=== PATIENT | female | born 1975 | race Caucasian/White ===

== ENCOUNTER 2018-08-08 14:16 | Inpatient (IN) | payer BC ==
[~2018-08-08] VITALS: Ht 167.6 cm; Wt 75.8 kg
[2018-08-08] MEDS ORDERED: ELIQUIS5 MG PO (14:35)
[2018-08-08] MEDS ORDERED: CELEXA40 MG PO (14:36)
[2018-08-08] MEDS ORDERED: LIPITOR40 MG PO (14:36)
[2018-08-08] MEDS ORDERED: GLUCOPHAGE500 MG PO (14:37)
[2018-08-08] MEDS ORDERED: ADDERALL 20 MG20 M1 PO (14:38)
[2018-08-08] MEDS ORDERED: KLONOPIN1 MG PO (14:39)
[2018-08-08 16:45] LABS: BASOPHILS 0.2 % (0-2); EOSINOPHILS 1.5 % (0-7); HEMATOCRIT 36.2 % (36.0-48.0); IMMATURE GRANULOCYTES 0.2 % (0-5); LYMPHOCYTES 29.3 % (15-50); MCH 26.9 pg (26.0-34.0); MCHC 33.1 g/dL (31.0-37.0); MCV 81.2 fL (80.0-100.0); MONOCYTES 5.9 % (2-11); NEUTROPHILS 62.9 % (40-80); PLATELET COUNT 307 10x3/uL (130-400); RBC 4.46 10x6/uL (4.00-5.40); RDW 13.7 % (11.5-14.5); WBC 9.1 10x3/uL (4.8-10.8)
[2018-08-08 17:01] LABS: ALBUMIN 3.4 g/dL (3.4-5.0); ALKALINE PHOSPHATASE 85 U/L (46-116); ALT (SGPT) 26 U/L (10-68); BILIRUBIN - TOTAL 0.21 mg/dL (0.2-1.3); CALC OSMOLALITY 280 mosm/kg (275-300); CHLORIDE - SERUM 105 mmol/L (98-107); CREATININE - SERUM 0.7 mg/dL (0.6-1.3); GLUCOSE 124 mg/dL (74-106); POTASSIUM - SERUM 3.8 mmol/L (3.5-5.1); PROTEIN - SERUM 6.8 g/dL (6.4-8.2); SODIUM 141 mmol/L (136-145); UREA NITROGEN 9 mg/dL (7-18); eGFR NON AFRICAN AMERICAN > 90 mL/min (90-120)
[2018-08-08 19:27] VITALS: BP 128/81; BMI 27.0
[2018-08-08 20:01] VITALS: BP 109/76
[2018-08-09 04:57] VITALS: BP 113/67
[2018-08-09 05:36] LABS: BASOPHILS 0.3 % (0-2); EOSINOPHILS 2.9 % (0-7); HEMOGLOBIN 10.8 g/dL (12-16); IMMATURE GRANULOCYTES 0.3 % (0-5); LYMPHOCYTES 32.9 % (15-50); MCH 26.3 pg (26.0-34.0); MCHC 31.8 g/dL (31.0-37.0); MCV 82.9 fL (80.0-100.0); MEAN PLATELET VOLUME 9.2 fL (7.4-10.4); MONOCYTES 8.5 % (2-11); NEUTROPHILS 55.1 % (40-80); PLATELET COUNT 293 10x3/uL (130-400); RDW 13.8 % (11.5-14.5); WBC 7.9 10x3/uL (4.8-10.8)
[2018-08-09 06:13] LABS: ALBUMIN 3.1 g/dL (3.4-5.0); ALKALINE PHOSPHATASE 78 U/L (46-116); ALT (SGPT) 25 U/L (10-68); BILIRUBIN - TOTAL 0.48 mg/dL (0.2-1.3); CALCIUM 8.3 mg/dL (8.5-10.1); CARBON DIOXIDE 29.7 mmol/L (21.0-32.0); CHLORIDE - SERUM 103 mmol/L (98-107); CREATININE - SERUM 0.7 mg/dL (0.6-1.3); GLUCOSE 117 mg/dL (74-106); MAGNESIUM - SERUM 2.1 mg/dL (1.8-2.4); PHOSPHOROUS 4.7 mg/dL (2.5-4.9); POTASSIUM - SERUM 3.7 mmol/L (3.5-5.1); PROTEIN - SERUM 6.4 g/dL (6.4-8.2); SODIUM 140 mmol/L (136-145); eGFR NON AFRICAN AMERICAN > 90 mL/min (90-120)
[2018-08-09 06:14] LABS: CALC OSMOLALITY 279 mosm/kg (275-300); UREA NITROGEN 13 mg/dL (7-18)
[2018-08-09 09:06] VITALS: BP 95/69
[2018-08-09 13:53] VITALS: BP 115/80
[2018-08-09 15:05] VITALS: Ht 167.6 cm; Wt 75.8 kg
[2018-08-09 16:24] VITALS: BP 105/58; BP 128/81
[2018-08-09 20:25] VITALS: BP 121/84
[2018-08-10 03:41] VITALS: BP 104/71
[2018-08-10 05:16] LABS: BASOPHILS 0.2 % (0-2); EOSINOPHILS 2.4 % (0-7); HEMATOCRIT 32.7 % (36.0-48.0); IMMATURE GRANULOCYTES 0.1 % (0-5); LYMPHOCYTES 32.1 % (15-50); MCH 27.4 pg (26.0-34.0); MCHC 33.6 g/dL (31.0-37.0); MCV 81.5 fL (80.0-100.0); MONOCYTES 6.9 % (2-11); NEUTROPHILS 58.3 % (40-80); PLATELET COUNT 268 10x3/uL (130-400); RBC 4.01 10x6/uL (4.00-5.40); RDW 13.7 % (11.5-14.5); WBC 8.4 10x3/uL (4.8-10.8)
[2018-08-10 05:40] LABS: CALC OSMOLALITY 280 mosm/kg (275-300); CARBON DIOXIDE 31.1 mmol/L (21.0-32.0); CHLORIDE - SERUM 105 mmol/L (98-107); CREATININE - SERUM 0.6 mg/dL (0.6-1.3); GLUCOSE 105 mg/dL (74-106); MAGNESIUM - SERUM 2.2 mg/dL (1.8-2.4); POTASSIUM - SERUM 4.2 mmol/L (3.5-5.1); SODIUM 142 mmol/L (136-145); eGFR NON AFRICAN AMERICAN > 90 mL/min (90-120)
[2018-08-10 05:42] LABS: PHOSPHOROUS 3.4 mg/dL (2.5-4.9); UREA NITROGEN 8 mg/dL (7-18)
[2018-08-10 09:08] VITALS: BP 113/73
[2018-08-10 13:36] VITALS: BP 138/75
--- NOTE | 2018-08-14 10:58 | MORECARE ---
CASE MANAGEMENT DISCHARGE SUMMARY PATIENT: DIANE FABIAN UNIT: [id number] ADM DATE: 08/08/18 AGE: 42 : [birth year] SEX: F ROOM/BED: D.2234 AUTHOR: JEFF CYR PHYSICIAN: REFERRING PHYSICIAN: CINTHYA SOLITARIO MD DATE OF SERVICE: 08/14/18 Discharge Plan Patient Name: DIANE FABIAN [facility] [facility] 1975 Planned Disposition: Anticipated Discharge Date: Discharge Date: 08/10/2018 Expected LOS: 0 Initial Reviewer: [email or web address] Initial Review Date: 08/08/2018 Generated: 08/14/18 11:58 am Patient Name: DIANE FABIAN Page [id number] at 1058 All edits/amendments must be made on the electronic document DICTATION DATE: 08/14/18 1058 EXECUTIVE VICE PRESIDENT OF SALES: MITESH 08/14/18 1058 RPT#: [id number] DC DATE:08/10/18 STATUS: DIS IN [facility] [address] [place] [address] END OF REPORT
== END 2018-08-10 18:12 | disposition home or self-care (01) | DRG 390 ==
LOC: D.SDCHOLD 14:16 → D.MS 14:16 → D.SDCHOLD 14:16 → D.MS 14:22
PROVIDERS: Surgery; ADMIT Internal Medicine Nephrology; ATTEND Internal Medicine Nephrology
PROC: 0D9670Z Drainage of Stomach with Drainage Device, Via Natural or Artificial Opening (ICD-10-PCS; principal; 2018-08-08)
DX: K56.609 Unspecified intestinal obstruction, unspecified as to partial versus complete obstruction (principal); E11.9 Type 2 diabetes mellitus without complications; Z79.01 Long term (current) use of anticoagulants; R51 Headache; Z86.711 Personal history of pulmonary embolism

== ENCOUNTER → 2018-08-15 12:37 | Outpatient (CLI) | payer BC ==
[2018-08-09 15:05] VITALS: BMI 26.9
[~2018-08-15 12:37] MED LIST: ADDERALL 20 MG20 M1 PO; CELEXA40 MG PO; ELIQUIS5 MG PO; GLUCOPHAGE500 MG PO; HYDROCODON-ACE1 EA10 PO; KLONOPIN1 MG PO; LIPITOR40 MG PO; LOVENOX80 MG/0.8 SC; ZOFRAN8 MG PO
== END | disposition home or self-care (01) ==
LOC: D.NM 12:37
PROVIDERS: ATTEND Family Medicine
DX: R10.11 Right upper quadrant pain (principal)

== ENCOUNTER 2018-08-27 08:20 | Inpatient (IN) | payer BC ==
[2018-08-27] VITALS (13 sets, daily range): BP systolic 110–137; BP diastolic 76–102; BMI 28.3; BMI 31.6
[~2018-08-27] VITALS: Ht 165.1 cm; Wt 89.5 kg
[~2018-08-27 08:20] MED LIST changes: -HYDROCODON-ACE1 EA10 PO; -LOVENOX80 MG/0.8 SC; -ZOFRAN8 MG PO
[2018-08-27 09:12] LABS: CALC OSMOLALITY 277 mosm/kg (275-300); CALCIUM 8.8 mg/dL (8.5-10.1); CARBON DIOXIDE 30.5 mmol/L (21.0-32.0); CHLORIDE - SERUM 103 mmol/L (98-107); CREATININE - SERUM 0.8 mg/dL (0.6-1.3); GLUCOSE 133 mg/dL (74-106); POTASSIUM - SERUM 4.1 mmol/L (3.5-5.1); SODIUM 139 mmol/L (136-145); UREA NITROGEN 7 mg/dL (7-18); eGFR NON AFRICAN AMERICAN 84 mL/min (90-120)
[2018-08-27 09:14] LABS: APTT 29.5 SECONDS (22.8-39.4); INR 0.91 (0.85-1.17); PROTIME 11.8 SECONDS (11.6-15.0)
[2018-08-27] MEDS ORDERED: ZOFRAN8 MG PO (09:50)
[2018-08-27] MEDS ORDERED: LOVENOX80 MG/0.8 SC (09:51)
[2018-08-27 10:10] LABS: BASOPHILS 0.4 % (0-2); EOSINOPHILS 4.4 % (0-7); HEMATOCRIT 36.5 % (36.0-48.0); HEMOGLOBIN 11.9 g/dL (12-16); IMMATURE GRANULOCYTES 0.2 % (0-5); LYMPHOCYTES 45.7 % (15-50); MCH 26.7 pg (26.0-34.0); MCHC 32.6 g/dL (31.0-37.0); MONOCYTES 8.3 % (2-11); RBC 4.45 10x6/uL (4.00-5.40); RDW 13.8 % (11.5-14.5); WBC 5.7 10x3/uL (4.8-10.8)
--- NOTE | 2018-08-27 10:14 | NUR ---
[address] SKAGGS RE PT REQUEST FOR TX BECAUSE OF BLEEDING DISORDER. TYPE AND CROSS MATCH FOR 2 UNITS HAVE BEEN ORDERED.
[2018-08-27 10:25] LABS: PLATELET COUNT 325 10x3/uL (130-400)
--- NOTE | 2018-08-27 10:36 | NUR ---
1036 NASAL SWABS DONE EACH NARES
--- NOTE | 2018-08-27 15:25 | NUR ---
SCHWARZ CATHETER NOTED ON ADMISSION ASSESSMENT. URINE IS CLEAR YELLOW.
[2018-08-27 17:08] LABS: APTT 27.3 SECONDS (22.8-39.4); INR 0.98 (0.85-1.17); PROTIME 12.5 SECONDS (11.6-15.0)
[2018-08-27 17:09] LABS: HEMATOCRIT 39.9 % (36.0-48.0); HEMOGLOBIN 12.8 g/dL (12-16); MCH 26.8 pg (26.0-34.0); MCHC 32.1 g/dL (31.0-37.0); MCV 83.6 fL (80.0-100.0); MEAN PLATELET VOLUME 9.4 fL (7.4-10.4); RBC 4.77 10x6/uL (4.00-5.40)
[2018-08-27 17:10] LABS: WBC 9.8 10x3/uL (4.8-10.8)
--- NOTE | 2018-08-27 17:40 | NUR ---
1620 PT ARRIVED TO ROOM ALERT, LETHARGIC FROM SURGERY, ORIENTED, O2 2L NC, R HAND PIV WITH NS, TILE AND MARBLE INSTALLER INITAIATED, PT EDUCATED ON HOW TO USE, L AC PIV ININTIATED, HEPARIN PER PROTOCOL AFTER LABS DRAWN, ABD LAP SITES WITH BANDAIDS, NO SIGNS OF BLEEDING, SCHWARZ DRAINING YELLOW URINE, CALL LIGHT WIHTIN REACH, FRIEND HERE FOR VISITATION AND SECURITY CODE SET UP, WILL CONTINUE TO MONITOR
--- NOTE | 2018-08-27 18:28 | NUR ---
NO SIGNS OF BLEEDING, PAIN MANAGED WITH WORK AND FAMILY LIFE CONSULTANT
--- NOTE | 2018-08-27 19:00 | NUR ---
REPORT RECEIVED, CARE ASSUMED. PT IS RESTING IN BED WITH EYES CLOSED. INITIAL ASSESSMENT COMPLETED, SEE FLOWSHEET FOR DETAILS.
--- NOTE | 2018-08-27 21:00 | NUR ---
PT IS RESTING IN BED WITH EYES CLOSED AT THIS TIME. WAKING PT UP OCCASSIONALLY TO PUSH PAIN BUTTON. NO SIGNS OF ACUTE DISTRESS. WILL CONTINUE TO MONITOR.
--- NOTE | 2018-08-27 23:00 | NUR ---
REASSESSMENT COMPLETED, SEE FLOWSHEET FOR DETAILS. PT IS RESTING IN BED WITH EYES CLOSED. WAKING PT UP OCCASSIONALLY TO PUSH PAIN BUTTON. NO SIGNS OF ACUTE DISTRESS. WILL CONTINUE TO MONITOR.
[2018-08-27 23:26] LABS: BASOPHILS 0.1 % (0-2); EOSINOPHILS 0.1 % (0-7); HEMOGLOBIN 11.5 g/dL (12-16); IMMATURE GRANULOCYTES 0.2 % (0-5); LYMPHOCYTES 8.8 % (15-50); MCH 26.8 pg (26.0-34.0); MCHC 31.9 g/dL (31.0-37.0); MCV 83.9 fL (80.0-100.0); MEAN PLATELET VOLUME 8.8 fL (7.4-10.4); MONOCYTES 5.3 % (2-11); NEUTROPHILS 85.5 % (40-80); PLATELET COUNT 299 10x3/uL (130-400); RBC 4.29 10x6/uL (4.00-5.40); RDW 14.4 % (11.5-14.5)
[2018-08-27 23:30] LABS: WBC 14.3 10x3/uL (4.8-10.8)
[2018-08-28] VITALS (7 sets, daily range): BP systolic 116–122; BP diastolic 75–97; Ht 165.1 cm; Wt 89.5 kg
--- NOTE | 2018-08-28 01:00 | NUR ---
PT IS RESTING IN BED WITH EYES CLOSED. PT HAS NO COMPLAINTS AT THIS TIME. NO SIGNS OF ACUTE DISTRESS. WILL CONTINUE TO MONITOR.
--- NOTE | 2018-08-28 03:00 | NUR ---
PT IS RESTING IN BED WITH EYES CLOSED AT THIS TIME. PT DENIES ANY NEEDS BUT DOES COMPLAIN OF A HEADACHE. WILL CONTINUE TO MONITOR.
--- NOTE | 2018-08-28 05:00 | NUR ---
PT IS RESTING IN BED WITH EYES CLOSED AT THIS TIME. NO SIGNS OF ACUTE DISTRESS. WILL CONTINUE TO MONITOR.
[2018-08-28 05:36] LABS: BASOPHILS 0.2 % (0-2); EOSINOPHILS 1.8 % (0-7); HEMATOCRIT 34.8 % (36.0-48.0); IMMATURE GRANULOCYTES 0.3 % (0-5); MCH 26.4 pg (26.0-34.0); MCHC 31.6 g/dL (31.0-37.0); MCV 83.5 fL (80.0-100.0); MONOCYTES 7.6 % (2-11); NEUTROPHILS 72.1 % (40-80); PLATELET COUNT 287 10x3/uL (130-400); RBC 4.17 10x6/uL (4.00-5.40); RDW 14.4 % (11.5-14.5)
[2018-08-28 05:52] LABS: WBC 10.5 10x3/uL (4.8-10.8)
[2018-08-28 06:21] LABS: ALBUMIN 2.9 g/dL (3.4-5.0); ALKALINE PHOSPHATASE 77 U/L (46-116); ALT (SGPT) 36 U/L (10-68); BILIRUBIN - TOTAL 0.29 mg/dL (0.2-1.3); CALC OSMOLALITY 272 mosm/kg (275-300); CALCIUM 7.9 mg/dL (8.5-10.1); CARBON DIOXIDE 28.5 mmol/L (21.0-32.0); CHLORIDE - SERUM 104 mmol/L (98-107); CREATININE - SERUM 0.7 mg/dL (0.6-1.3); GLUCOSE 118 mg/dL (74-106); MAGNESIUM - SERUM 1.8 mg/dL (1.8-2.4); PHOSPHOROUS 3.7 mg/dL (2.5-4.9); PROTEIN - SERUM 6.2 g/dL (6.4-8.2); SODIUM 137 mmol/L (136-145); UREA NITROGEN 7 mg/dL (7-18); eGFR NON AFRICAN AMERICAN > 90 mL/min (90-120)
--- NOTE | 2018-08-28 07:20 | NUR ---
REPORT RECEIVED. ASSESSMENT COMPLETE PER FLOW SHEET. VSS. WILL CONTINUE TO MONITOR
[2018-08-28] MEDS ORDERED: HYDROCODON-ACE1 EA10 PO (12:34)
--- NOTE | 2018-08-28 12:50 | NUR ---
DR SKAGGS AT BEDSIDE UPDATE GIVEN DISCHARGE ORDERS RECIEVED WILL ADM.
--- NOTE | 2018-08-28 12:51 | MORECARE ---
CASE MANAGEMENT DISCHARGE SUMMARY PATIENT: Daljit FABIAN UNIT: [id number] ADM DATE: 08/27/18 AGE: 42 : [birth year] SEX: F ROOM/BED: D.2310 AUTHOR: JEFF CYR PHYSICIAN: REFERRING PHYSICIAN: FAB SKAGGS MD DATE OF SERVICE: 08/28/18 Discharge Plan Patient Name: Daljit FABIAN [facility] [facility] 1975 Planned Disposition: Anticipated Discharge Date: Discharge Date: Expected LOS: Initial Reviewer: [email or web address] Initial Review Date: 08/27/2018 Generated: 08/28/18 1:51 pm Comments DCP- Discharge Planning Updated by [email or web address]: Hetal Bey on 08/28/18 11:[address] CM ATTEMPTED TO MEET WITH PATIENT AT BEDSIDE TO DISCUSS D/C PLANNING. PATIENT IS CURRENTLY HAVING N/V AND REQUESTED CM TO COME BACK LATER. CM WILL CONTINUE TO FOLLOW AND ASSIST NEEDED WITH DISCHARGE PLANNING / NEEDS. Patient Name: Daljit FABIAN Page [phone] at 1251 All edits/amendments must be made on the electronic document DICTATION DATE: 08/28/18 125 COLD ROLLER: MITESH 08/28/18 1250 RPT#: [id number] DC DATE: STATUS: ADM IN [facility] [address] [place] [address] END OF REPORT
--- NOTE | 2018-08-28 13:08 | NUR ---
DR SKAGGS PAGED GIVEN UPDATE PT STATED WILL NOT BE LEAVING UNTIL HEADACH IS GONE, NEW ORDERS RECEIVED, PT STATED IF BEING TAKEN OFF HEP DPP THEN WOULD NEED LOVENOX. DR SKAGGS GIVEN UDPATE. ONE TIME DOSE LOVENOX ORDERED REFER TO EMAR. PT GIVEN UPDATE.
--- NOTE | 2018-08-28 15:45 | NUR ---
PT LEFT VIA WHEELCHAIR. NEEDS MET
--- NOTE | 2018-08-29 09:32 | MORECARE ---
CASE MANAGEMENT DISCHARGE SUMMARY PATIENT: Daljit FABIAN UNIT: [id number] ADM DATE: 08/27/18 AGE: 42 : [birth year] SEX: F ROOM/BED: D.2310 AUTHOR: JEFF CYR PHYSICIAN: REFERRING PHYSICIAN: FAB SKAGGS MD DATE OF SERVICE: 08/29/18 Discharge Plan Patient Name: Daljit FABIAN [facility] [facility] 1975 Planned Disposition: Anticipated Discharge Date: Discharge Date: 08/28/2018 Expected LOS: Initial Reviewer: [id number] Initial Review Date: 08/27/2018 Generated: 08/29/18 10:31 am DCP- Discharge Planning Updated by [email or web address]: Hetal Bey on 08/28/18 11:[address] CM ATTEMPTED TO MEET WITH PATIENT AT BEDSIDE TO DISCUSS D/C PLANNING. PATIENT IS CURRENTLY HAVING N/V AND REQUESTED CM TO COME BACK LATER. CM WILL CONTINUE TO FOLLOW AND ASSIST NEEDED WITH DISCHARGE PLANNING / NEEDS. Last DP export: 08/28/18 11:51 am Patient Name: Daljit FABIAN Page [phone] at 0932 All edits/amendments must be made on the electronic document DICTATION DATE: 08/29/18930 TESTING MANAGER: MITESH 08/29/18930 RPT#: [id number] DC DATE:08/28/18 STATUS: DIS IN [facility] [address] [place] [address] END OF REPORT
--- NOTE | 2018-09-03 18:47 | OP ---
PATIENT NAME: Daljit FABIAN MEDICAL RECORD: [id number] :[birth year] LOCATION:[facility] D.2310 ADMISSION DATE:08/27/18 SURGEON: FAB SKAGGS MD DATE OF OPERATION: 08/27/2018 PREOPERATIVE DIAGNOSIS: Biliary dyskinesia. POSTOPERATIVE DIAGNOSIS: Biliary dyskinesia. PROCEDURE: 1. Laparoscopic cholecystectomy. 2. Intraoperative cholangiography without immediate surgeon interpretation. SURGEON: Fab Skaggs MD SIGNAL REPAIRER: None. BLOOD LOSS: Minimal. ANESTHESIA: General. The risks, possible complications and alternatives to the procedure were discussed with the patient. She elects to proceed. OPERATIVE COURSE: The patient was conveyed to the operating room electively on 08/27/2018. General anesthesia was induced by the anesthesia staff. The abdomen was sterilely prepped and draped. A small skin deborah was accomplished in the left upper quadrant. Veress needle was inserted through the skin deborah into the peritoneal cavity. CO2 insufflation was begun. Once a sufficient pneumoperitoneum had been achieved, a 5-mm trocar was inserted through an incision in the left lower quadrant. Under direct internal vision utilizing television camera, a 5-mm trocar was inserted through an incision in the right upper quadrant and another 5-mm trocar was inserted through an incision far laterally in the right upper quadrant. An incision was accomplished within the umbilicus. There was a small umbilical hernia that had some incarcerated preperitoneal fat present and a 12-mm trocar was inserted here. During insertion of the Veress needle and all trocars, there appeared to have been no injury to the bowels, any intraperitoneal, or retroperitoneal structures. The liver was of normal size. The gallbladder did contain some adhesions to it. Abdominal survey was undertaken. The gallbladder was grasped. A cholangiogram trocar was advanced and I punctured the fundus of the gallbladder. I aspirated bile and then injected dye. Under real time fluoroscopy, static fluoroscopic images were obtained. These are cholangiographic images that are sent to the radiologist for interpretation. The gallbladder was grasped and retracted cephalad. The infundibulum was grasped and retracted laterally. Blunt dissection was begun on the triangle of Calot. One cystic artery and one cystic duct were identified. These were clipped multiply and divided between clips. The gallbladder was excised from its bed and the liver, it was placed within a bag retrieval device and was withdrawn through the umbilical fascia defect. The 12-mm trocars were placed and the abdomen reinsufflated. I irrigated and OPERATIVE REPORT [id number] Daljit FABIAN aspirated the right upper quadrant. There was no bleeding even at low pressure of 8. As the patient is going to be on a heparin drip postoperatively, Tisseel was added to gallbladder fossa for additional hemostasis. All the trocars were removed and the abdomen was desufflated. The umbilical fascia was closed with a [id number] 0 Vicryl suture. The skin at the umbilicus was closed with interrupted 4-0 Vicryl Rapide sutures and the other skin incisions were closed with interrupted intracuticular 3-0 Vicryls. Benzoin and Steri-Strips were applied. The patient was then extubated and conveyed to post-anesthesia care unit where she was in stable condition. TRANSINT:[id number] Voice Confirmation ID: [id number] DOCUMENT ID: [id number] FAB SKAGGS MD at 1847 CC: ELO PRIETO DO [id number] DICTATION DATE: 08/27/18 1525 POURER BULL LADLE: 08/27/182005 DIS IN 08/28/18 [facility] [address] [place] [address]
== END 2018-08-28 15:56 | disposition home or self-care (01) | DRG 989 ==
LOC: D.OPS 08:20 → D.PAN 10:30 → D.OPS 10:30 → D.ICU 16:03 → D.OPS 16:32 → D.ICU 16:33 → D.OPS 08-29 08:00 → D.PAN 08-29 08:00 → D.OPS 08-29 11:15
PROVIDERS: Anesthesiology; ADMIT Surgery; ATTEND Surgery
PROC: BF121ZZ Fluoroscopy of Gallbladder using Low Osmolar Contrast (ICD-10-PCS; 2018-08-27)
PROC: 0FT44ZZ Resection of Gallbladder, Percutaneous Endoscopic Approach (ICD-10-PCS; principal; 2018-08-27 10:30)
DX: D68.59 Other primary thrombophilia (principal); K82.8 Other specified diseases of gallbladder; D68.9 Coagulation defect, unspecified; E11.9 Type 2 diabetes mellitus without complications; F41.9 Anxiety disorder, unspecified; Z86.711 Personal history of pulmonary embolism; Z79.01 Long term (current) use of anticoagulants

== ENCOUNTER → 2018-09-01 15:10 | Outpatient (CLI) | payer BC ==
[2018-08-28 09:21] VITALS: BMI 32.8
[~2018-09-01 15:10] MED LIST changes: +HYDROCODON-ACE1 EA10 PO; +LOVENOX80 MG/0.8 SC; +ZOFRAN8 MG PO
== END | disposition home or self-care (01) ==
LOC: D.CT 15:00
PROVIDERS: ATTEND Surgery
DX: R10.31 Right lower quadrant pain (principal)

== ENCOUNTER → 2018-09-01 18:31 | Outpatient (CLI) | payer BC ==
[2018-08-28 09:21] VITALS: BMI 32.8
[2018-09-01 18:53] LABS: BASOPHILS 0.2 % (0-2); EOSINOPHILS 8.6 % (0-7); HEMATOCRIT 35.4 % (36.0-48.0); HEMOGLOBIN 11.7 g/dL (12-16); IMMATURE GRANULOCYTES 0.3 % (0-5); LYMPHOCYTES 25.2 % (15-50); MCH 26.8 pg (26.0-34.0); MCHC 33.1 g/dL (31.0-37.0); MEAN PLATELET VOLUME 8.6 fL (7.4-10.4); MONOCYTES 6.7 % (2-11); PLATELET COUNT 320 10x3/uL (130-400); RBC 4.37 10x6/uL (4.00-5.40); RDW 13.4 % (11.5-14.5)
== END | disposition home or self-care (01) ==
LOC: D.US 08-12 16:30 → D.OPS 08-13 12:00 → D.LAB 18:31
PROVIDERS: ATTEND Family Medicine
DX: R10.10 Upper abdominal pain, unspecified (principal)